=== PATIENT | male | born 1950 ===

== ENCOUNTER 2016-09-04 07:08 | Day surgery (SDC) | payer MEDICARE, BC ==
[2016-09-04] VITALS (8 sets, daily range): BP systolic 96–107; BP diastolic 50–66; PULSE 62–92; RESP 15–20; Ht 154.9 cm; Wt 83.0 kg
[~2016-09-04] VITALS: Ht 154.9 cm; Wt 83.0 kg
[2016-09-04] MEDS ORDERED: POLYMYXIN/BACITRACIN 1L IRRIG IRR ONE (08:00)
[2016-09-04] MEDS ORDERED: SOD CHLORIDE 0.9% 1,000 ML IV SCH (08:00)
[2016-09-04] MEDS ORDERED: HEPARIN 1000 UNITS/ML 10 ML INJ ONE (08:23)
[2016-09-04] MEDS ORDERED: LIDOCAINE 1%/EPI (MDV) 20 ML INJ ONE (08:23)
[2016-09-04] MEDS ORDERED: DIPHENHYDRAMINE 50 MG INJ ONE (08:43)
[2016-09-04] MEDS ORDERED: MIDAZOLAM 1 MG/ML 2 ML INJ ONE (08:43)
[2016-09-04] MEDS ORDERED: FENTAnyl 50 MCG/ML VIAL ONE (08:43)
[2016-09-04] MEDS ORDERED: CEFAZOLIN 1 GM/50 ML (PMX) 50 ML IVPB ONE (08:43)
[2016-09-04] MEDS ORDERED: DIVA-16 PO (09:09)
[2016-09-04] MEDS ORDERED: DOCU-159 PO (09:10)
[2016-09-04] MEDS ORDERED: DUTA0.5C PO (09:11)
[2016-09-04] MEDS ORDERED: FURO-110 PO (09:12)
--- NOTE | 2016-09-04 11:31 | RADRPT ---
PROCEDURE: RIGHT INTERNAL JUGULAR PORT PLACEMENT CLINICAL INDICATION: IV access for chemotherapy FLUOROSCOPY TIME: 0.1 minute TECHNIQUE: The procedure, its potential risks, benefits and alternatives were explained. Risks, including but n ot limited to pain, bleeding, infection, thrombosis, embolism and arrhythmia were discussed and und erstood. Following this discussion with the patient, informed consent was obtained. The right internal jugular vein was imaged with ultrasound and was shown to be compressible, with no evidence of thrombus. An image of this vein was obtained and saved to the PACS system. The neck and chest wall were scrubbed, draped and prepped in a sterile manner. The procedure was ca rried out under aseptic conditions. 1% lidocaine with epinephrine was utilized for local anesthesia . Following the standard prep, and under ultrasound guidance, the right internal jugular vein was punctured using anterior single wall micropuncture technique, and a micropuncture catheter was adva nced into the superior vena cava. Following this, an appropriate site on the anterior chest wall w as selected for port placement. The skin over the port placement site was then anesthetized. The s kin was then incised. Deep anesthesia was then given. Using blunt dissection technique, a pocket w as created in the subcutaneous soft tissue. Following this, a tract connecting the port pocket with the neck entry site was anesthetized. A 6 German catheter was then pulled through the subcutaneous tract. Exchange of the micropuncture catheter was then done for a peel-away sheath. The catheter was then advanced through the sheath, the sheath was removed and the catheter was positioned with it s tip at the cavoatrial junction. Fluoroscopy was utilized to guide placement of the catheter. An im age of its final position was saved to the PACS system. The proximal end of the catheter was then tr immed and attached to a power injectable dual lumen chest wall port. The catheter and the port were then heparinized. The port was then placed within the pocket blank. The wound was then irrigated, and was dried. The wound was then closed using interrupted 3-0 Vicryl sutures, and a running subde rmal 4-0 Vicryl suture. Then over this, Dermabond was applied. A 4-0 Vicryl suture was placed to c lose the neck entry site, over which Dermabond was applied. The patient tolerated the procedure well . COMPARISON: none FINDINGS: as above. IMPRESSION: Placement of power injectable single lumen right chest wall port, as above. The catheter is ready for use. RPTAT: EE Martínez Berman, Physician Date Time Electronically viewed and signed by Martínez Berman, Physician on 09/04/2016 11:31 RA/
--- NOTE | 2016-09-04 11:32 | RADRPT ---
PROCEDURE: ULTRASOUND-GUIDED VASCULAR ACCESS CLINICAL INDICATION: Port-A-Cath placement TECHNIQUE: Informed consent was obtained from the patient after a discussion of the risks, benefit s, and alternatives of the procedure. Risks include, but are not limited to bleeding and infection. The right internal jugular vein was found to be patent and compressible with decker scale and power D oppler. A picture of it was saved to the PACS. 1% lidocaine was utilized for anesthesia. Under di rect ultrasound guidance, a 21-gauge needle was advanced into the right internal jugular vein. A wi re was advanced through the micropuncture needle. The micropuncture needle was then removed over th e wire and a 5-Palau[place] catheter was advanced over the wire. COMPARISON: None. FINDINGS: Patent and compressible right internal jugular vein. IMPRESSION: Ultrasound guided vascular access for placement of a Port-A-Cath. RPTAT: EE Physician Julien Date Time Electronically viewed and signed by Physician Julien on 09/04/2016 11:32 /
== END 2016-09-04 12:35 | disposition home or self-care (01) ==
LOC: SDS 07:08
PROVIDERS: ATTEND Internal Medicine Hematology & Oncology
DX: C61 Malignant neoplasm of prostate (principal)
CPT/HCPCS: 36561; 76942; C1769; C1788; J0690; J1644; J2250; J3010; J1200